=== PATIENT | male | born 1960 | race Caucasian/White ===

== ENCOUNTER → 2018-05-25 | Outpatient (REF) | payer OTHER, MEDICARE ==
[2018-05-25 13:21] LABS: BASO # 0.1 10^3/uL (0.0-0.2); BASO % 0.6 % (0.0-1.0); EOS # 0.3 10^3/uL (0.0-0.50); EOS % 3.5 % (0.0-3.0); HEMATOCRIT 39.4 % (42.0-52.0); HEMOGLOBIN 12.1 g/dl (13.5-17.5); IMMATURE GRANULOCYTE % 0.3 % (0-3.0); LYMPH # 1.4 10^3/uL (1.5-4.5); LYMPH % 15.8 % (24.0-44.0); MEAN CORPUSCULAR HEMOGLOBIN 26.2 pg (27.0-33.0); MEAN CORPUSCULAR HGB CONC 30.7 g/dl (32.0-36.5); MEAN CORPUSCULAR VOLUME 85.5 fl (80.0-96.0); MONO # 0.5 10^3/uL (0.0-0.8); MONO % 5.7 % (0.0-5.0); NEUTROPHILS # 6.6 10^3/uL (1.8-7.7); NEUTROPHILS % 74.1 % (36.0-66.0); PLATELET COUNT, AUTOMATED 328 10^3/uL (150-450); RED BLOOD COUNT 4.61 10^6/uL (4.30-6.10); RED CELL DISTRIBUTION WIDTH 14.2 % (11.5-14.5); WHITE BLOOD COUNT 8.9 10^3/uL (4.0-10.0)
[2018-05-25 13:43] LABS: ERYTHROCYTE SEDIMENTATION RATE 9 mm/hr (0-20)
== END ==
LOC: M SFHCPLAZ 10:50
DX: T84.50XA Infection and inflammatory reaction due to unspecified internal joint prosthesis, initial encounter (principal); Y83.8 Other surgical procedures as the cause of abnormal reaction of the patient, or of later complication, without mention of misadventure at the time of the procedure

== ENCOUNTER → 2018-06-23 | Outpatient (REF) | payer OTHER, MEDICARE | LOC: M SFHCPLAZ 11:42 | PROVIDERS: ATTEND Internal Medicine Infectious Disease | DX: A49.01 Methicillin susceptible Staphylococcus aureus infection, unspecified site (principal) ==

== ENCOUNTER → 2019-05-17 | Outpatient (REF) | LOC: M LAB LCGH 14:48 | PROVIDERS: ATTEND Surgery | DX: Z45.2 Encounter for adjustment and management of vascular access device (principal) ==

== ENCOUNTER 2023-09-15 13:43 | Inpatient (IN) | payer BC, MEDICARE ==
[~2023-09-15] VITALS: Ht 185.4 cm; Wt 171.6 kg
[2023-09-15 16:21] VITALS: BP 158/90; TEMP 99.1; O2SAT 99
[2023-09-15 16:53] LABS: BASO # 0.1 10^3/uL (0.0-0.2); BASO % 0.4 % (0.0-1.0); EOS % 0.2 % (0.0-3.0); HEMATOCRIT 31.9 % (42.0-52.0); HEMOGLOBIN 9.7 g/dl (13.5-17.5); LYMPH # 0.8 10^3/uL (1.5-5.0); MEAN CORPUSCULAR HEMOGLOBIN 25.5 pg (27.0-33.0); MEAN CORPUSCULAR HGB CONC 30.4 g/dl (32.0-36.5); MEAN CORPUSCULAR VOLUME 83.9 fl (80.0-96.0); MONO # 1.8 10^3/uL (0.0-0.8); MONO % 9.3 % (2.0-8.0); NEUTROPHILS # 16.2 10^3/uL (1.5-8.5); PLATELET COUNT, AUTOMATED 485 10^3/uL (150-450)
[2023-09-15 17:18] LABS: INR 1.21; PARTIAL THROMBOPLASTIN TIME 30.7 SECONDS (24.8-34.2); PROTHROMBIN TIME 14.9 SECONDS (12.5-14.5)
[2023-09-15 17:21] LABS: ALBUMIN 2.2 G/DL (3.2-5.2); ALKALINE PHOSPHATASE 124 U/L (46-116); ALT/SGPT < 9 U/L (7.0-40); AST/SGOT 45 U/L (<34); BILIRUBIN,TOTAL 0.6 MG/DL (0.3-1.2); BLOOD UREA NITROGEN 10 MG/DL (9-23); CALCIUM LEVEL 9.7 MG/DL (8.3-10.6); CARBON DIOXIDE LEVEL 27 MMOL/L (20-31); CHLORIDE LEVEL 101 MMOL/L (98-107); CREATININE FOR GFR 0.62 MG/DL (0.70-1.30); GLOMERULAR FILTRATION RATE > 60.0 (>49); GLUCOSE, FASTING 95 MG/DL (74-106); SODIUM LEVEL 138 MMOL/L (136-145); TOTAL PROTEIN 5.6 G/DL (5.7-8.2)
[2023-09-15] MEDS ORDERED: MOM 30ML SUSPENSION UDC PO PRN (17:25)
[2023-09-15 18:29] LABS: BILIRUBIN,DIRECT 0.3 MG/DL (<0.4)
[2023-09-15 18:31] LABS: HEMOGLOBIN A1c 4.7 % (4.0-6.0)
[2023-09-15 18:41] LABS: PROCALCITONIN 3.65 ng/ml
[2023-09-15] MEDS ORDERED: VITA100T59 PO (19:48)
[2023-09-15] MEDS ORDERED: LOSA100T46 PO (19:48)
[2023-09-15] MEDS ORDERED: FURO20TA2 PO (19:48)
[2023-09-15] MEDS ORDERED: NIFE1TAB51 PO (19:48)
[2023-09-15] MEDS ORDERED: FLINCHW2 PO (19:48)
[2023-09-15] MEDS ORDERED: PROBCAP14 PO (19:48)
[2023-09-15] MEDS ORDERED: METO50TA7 PO (19:48)
[2023-09-15] MEDS ORDERED: FLUTISP NARES (19:48)
[2023-09-15] MEDS ORDERED: VITAD400CA PO (19:48)
[2023-09-15] MEDS ORDERED: FERR32TA PO (19:48)
[2023-09-15] MEDS ORDERED: B-12100010 PO (19:48)
[2023-09-15] MEDS ORDERED: HOME MED LIST COMPLETE! XX SCH (19:55)
[2023-09-15 20:09] VITALS: BP 105/64; TEMP 99; O2SAT 95
[2023-09-15] MEDS: NYSTATIN 100,000 UNITS/GM TOPICAL PWD 15GM TOP SCH (21:29)
[2023-09-15] MEDS: FERROUS GLUCONATE 324 MG TAB PO SCH (21:32)
[2023-09-15] MEDS: NIFEdipine 30MG XL TAB PO SCH (21:32)
[2023-09-15] MEDS: METOPROLOL TART 50 MG TAB PO SCH (21:33)
[2023-09-15] MEDS: DOCUSATE SODIUM 100MG CAPSULE PO SCH (21:33)
[2023-09-15] MEDS: HEPARIN SOD (PORCINE) 5000UNITS/ML 1ML VIAL/SYRINGE SQ ONE (21:34)
[2023-09-15] MEDS: PIPERACILLIN/TAZOBACTAM SOD 3.375 GM in D5W MINI-BAG PLUS 50 ML IV SCH (23:13)
[2023-09-15] MEDS: ACETAMINOPHEN TAB 650MG DOSE (2X325MG) PO PRN (23:19)
[2023-09-16] VITALS (8 sets, daily range): BP systolic 108–143; BP diastolic 60–91; TEMP 96.4–101.5; O2SAT 93–99
[2023-09-16 05:46] LABS: BASO # 0.1 10^3/uL (0.0-0.2); BASO % 0.4 % (0.0-1.0); EOS # 0.1 10^3/uL (0.0-0.5); EOS % 0.8 % (0.0-3.0); HEMATOCRIT 29.5 % (42.0-52.0); HEMOGLOBIN 8.9 g/dl (13.5-17.5); LYMPH # 0.7 10^3/uL (1.5-5.0); LYMPH % 4.4 % (24.0-44.0); MEAN CORPUSCULAR HEMOGLOBIN 25.3 pg (27.0-33.0); MEAN CORPUSCULAR HGB CONC 30.2 g/dl (32.0-36.5); MEAN CORPUSCULAR VOLUME 83.8 fl (80.0-96.0); MONO # 1.8 10^3/uL (0.0-0.8); MONO % 11.4 % (2.0-8.0); NEUTROPHILS # 12.7 10^3/uL (1.5-8.5); NEUTROPHILS % 81.7 % (36.0-66.0); PLATELET COUNT, AUTOMATED 388 10^3/uL (150-450); RED BLOOD COUNT 3.52 10^6/uL (4.30-6.10); WHITE BLOOD COUNT 15.6 10^3/uL (4.0-10.0)
[2023-09-16 06:11] LABS: BLOOD UREA NITROGEN 9 MG/DL (9-23); CARBON DIOXIDE LEVEL 29 MMOL/L (20-31); CHLORIDE LEVEL 103 MMOL/L (98-107); CREATININE FOR GFR 0.66 MG/DL (0.70-1.30); GLOMERULAR FILTRATION RATE > 60.0 (>49); GLUCOSE, FASTING 98 MG/DL (74-106); POTASSIUM SERUM 3.9 MMOL/L (3.5-5.1); SODIUM LEVEL 138 MMOL/L (136-145)
[2023-09-16] MEDS ORDERED: METOPROLOL TART 50 MG TAB PO SCH ×2 (07:10→21:00)
[2023-09-16] MEDS: CEFTAROLINE FOSAMIL 600 MG in D5W MINI-BAG PLUS 50 ML IV SCH (09:55)
[2023-09-16] MEDS: LOSARTAN 50MG TABLET PO SCH (09:57)
[2023-09-16] MEDS: FUROSEMIDE 40 MG TAB PO SCH (09:57)
[2023-09-16] MEDS: METOPROLOL TART 50 MG TAB PO ONE (09:58)
[2023-09-16] MEDS: VITAMIN D 1,000 INTERNATIONAL UNITS TABLET PO SCH (09:58)
[2023-09-16] MEDS ORDERED: LIDOCAINE 1% MDV 20ML VIAL As Ordered ONE (11:13)
[2023-09-16] MEDS ORDERED: ACETAMINOPHEN 325 MG TAB As Ordered ONE (11:22)
[2023-09-16] MEDS: metroNIDAZOLE 500 MG in IV 1 EA IV SCH (13:10)
[2023-09-16] MEDS: ASPIRIN 325 MG TAB PO SCH (13:11)
[2023-09-16] MEDS: KETOROLAC 30 MG/ML 1ML VIAL IV SCH (13:57)
[2023-09-16] MEDS: oxyCODONE 5MG TAB PO PRN (13:58)
[2023-09-16] MEDS: dilTIAZem 30 MG TAB PO SCH ×2 (16:07→22:00)
[2023-09-16] MEDS ORDERED: ISOVUE-370 76% 100ML VIAL As Ordered ONE (17:28)
[2023-09-16] MEDS ORDERED: RIVAROXABAN 10MG TAB (XARELTO) PO SCH (18:00)
[2023-09-16] MEDS: ENOXAPARIN 40MG/0.4ML SYRINGE (J1650 PER 10MG) SC SCH (20:37)
[2023-09-16] MEDS: METOPROLOL TARTRATE 100MG TAB PO SCH (20:40)
[2023-09-17 00:53] VITALS: BP 126/65; TEMP 98.1; O2SAT 97
[2023-09-17 04:15] VITALS: BP 117/53; TEMP 98; O2SAT 97
[2023-09-17 05:32] LABS: BASO # 0.1 10^3/uL (0.0-0.2); BASO % 0.5 % (0.0-1.0); EOS # 0.2 10^3/uL (0.0-0.5); EOS % 1.4 % (0.0-3.0); HEMATOCRIT 28.5 % (42.0-52.0); HEMOGLOBIN 8.6 g/dl (13.5-17.5); LYMPH # 0.8 10^3/uL (1.5-5.0); LYMPH % 5.2 % (24.0-44.0); MEAN CORPUSCULAR HEMOGLOBIN 25.4 pg (27.0-33.0); MEAN CORPUSCULAR HGB CONC 30.2 g/dl (32.0-36.5); MEAN CORPUSCULAR VOLUME 84.3 fl (80.0-96.0); MONO # 1.8 10^3/uL (0.0-0.8); NEUTROPHILS # 11.7 10^3/uL (1.5-8.5); NEUTROPHILS % 79.7 % (36.0-66.0); PLATELET COUNT, AUTOMATED 372 10^3/uL (150-450); RED BLOOD COUNT 3.38 10^6/uL (4.30-6.10); WHITE BLOOD COUNT 14.7 10^3/uL (4.0-10.0)
[2023-09-17 06:08] LABS: BLOOD UREA NITROGEN 11 MG/DL (9-23); CALCIUM LEVEL 8.7 MG/DL (8.3-10.6); CARBON DIOXIDE LEVEL 29 MMOL/L (20-31); CHLORIDE LEVEL 103 MMOL/L (98-107); CREATININE FOR GFR 0.69 MG/DL (0.70-1.30); GLOMERULAR FILTRATION RATE > 60.0 (>49); GLUCOSE, FASTING 97 MG/DL (74-106); POTASSIUM SERUM 3.9 MMOL/L (3.5-5.1); SODIUM LEVEL 140 MMOL/L (136-145)
[2023-09-17 08:05] VITALS: BP 126/68; TEMP 97.9; O2SAT 98
[2023-09-17 11:40] VITALS: BP 131/69; TEMP 97.8; O2SAT 98
[2023-09-17 19:53] VITALS: BP 137/73; TEMP 97.9; O2SAT 96
[2023-09-17] MEDS: APIXABAN 5 MG TAB (ELIQUIS) PO SCH (21:05)
[2023-09-17 23:39] VITALS: BP 134/62; TEMP 98.3; O2SAT 97
[2023-09-18] MEDS: guaiFENesin DM *SUGAR FREE* 5ML**DIABETIC TUSSIN DM PO PRN (00:06)
[2023-09-18 03:25] VITALS: BP 137/71; TEMP 97.3; O2SAT 95
[2023-09-18 05:35] LABS: BASO # 0.1 10^3/uL (0.0-0.2); BASO % 0.6 % (0.0-1.0); EOS # 0.2 10^3/uL (0.0-0.5); EOS % 1.4 % (0.0-3.0); HEMATOCRIT 27.9 % (42.0-52.0); HEMOGLOBIN 8.4 g/dl (13.5-17.5); LYMPH # 0.9 10^3/uL (1.5-5.0); LYMPH % 5.7 % (24.0-44.0); MEAN CORPUSCULAR HEMOGLOBIN 25.1 pg (27.0-33.0); MEAN CORPUSCULAR HGB CONC 30.1 g/dl (32.0-36.5); MEAN CORPUSCULAR VOLUME 83.5 fl (80.0-96.0); MONO # 1.7 10^3/uL (0.0-0.8); MONO % 10.5 % (2.0-8.0); NEUTROPHILS # 12.8 10^3/uL (1.5-8.5); NEUTROPHILS % 80.9 % (36.0-66.0); PLATELET COUNT, AUTOMATED 394 10^3/uL (150-450); RED BLOOD COUNT 3.34 10^6/uL (4.30-6.10); WHITE BLOOD COUNT 15.9 10^3/uL (4.0-10.0)
[2023-09-18 06:05] LABS: BLOOD UREA NITROGEN 11 MG/DL (9-23); CALCIUM LEVEL 9.4 MG/DL (8.3-10.6); CARBON DIOXIDE LEVEL 28 MMOL/L (20-31); CHLORIDE LEVEL 101 MMOL/L (98-107); GLOMERULAR FILTRATION RATE > 60.0 (>49); GLUCOSE, FASTING 92 MG/DL (74-106); POTASSIUM SERUM 3.9 MMOL/L (3.5-5.1); SODIUM LEVEL 136 MMOL/L (136-145)
[2023-09-18 07:28] VITALS: BP 145/75; TEMP 97.4; O2SAT 92
[2023-09-18] MEDS: MUPIROCIN 2% OINT 22 GM TUBE TOP SCH (08:30)
[2023-09-18 11:27] VITALS: BP 116/68; TEMP 96.9; O2SAT 96
[2023-09-18] MEDS: dilTIAZem 30 MG TAB PO SCH (13:01)
[2023-09-18 16:19] VITALS: BP 139/62; TEMP 97.1; O2SAT 97
[2023-09-18 19:44] VITALS: BP 131/60; TEMP 97; O2SAT 93
[2023-09-19 03:04] VITALS: BP 156/68; TEMP 97.6; O2SAT 93
[2023-09-19 05:49] LABS: BASO # 0.1 10^3/uL (0.0-0.2); BASO % 0.7 % (0.0-1.0); EOS # 0.3 10^3/uL (0.0-0.5); EOS % 1.6 % (0.0-3.0); HEMATOCRIT 30.3 % (42.0-52.0); LYMPH # 0.8 10^3/uL (1.5-5.0); MEAN CORPUSCULAR HEMOGLOBIN 25.1 pg (27.0-33.0); MEAN CORPUSCULAR HGB CONC 29.7 g/dl (32.0-36.5); MEAN CORPUSCULAR VOLUME 84.4 fl (80.0-96.0); MONO # 1.5 10^3/uL (0.0-0.8); MONO % 9.9 % (2.0-8.0); NEUTROPHILS # 12.5 10^3/uL (1.5-8.5); NEUTROPHILS % 81.6 % (36.0-66.0); PLATELET COUNT, AUTOMATED 428 10^3/uL (150-450); RED BLOOD COUNT 3.59 10^6/uL (4.30-6.10); WHITE BLOOD COUNT 15.3 10^3/uL (4.0-10.0)
[2023-09-19 06:01] LABS: BLOOD UREA NITROGEN 10 MG/DL (9-23); CALCIUM LEVEL 9.2 MG/DL (8.3-10.6); CARBON DIOXIDE LEVEL 31 MMOL/L (20-31); CHLORIDE LEVEL 101 MMOL/L (98-107); CREATININE FOR GFR 0.59 MG/DL (0.70-1.30); GLOMERULAR FILTRATION RATE > 60.0 (>49); GLUCOSE, FASTING 91 MG/DL (74-106); SODIUM LEVEL 137 MMOL/L (136-145)
[2023-09-19 07:55] VITALS: BP 128/61; TEMP 97.3; O2SAT 92
[2023-09-19 07:55] LABS: MAGNESIUM LEVEL 1.6 MG/DL (1.8-2.4)
[2023-09-19] MEDS: ONDANSETRON 4MG 2ML VIAL IV PRN (09:31)
[2023-09-19 11:30] VITALS: BP 125/54; TEMP 97.3; O2SAT 94
[2023-09-19] MEDS: INFLUENZA QUADRIVALENT PF VACCINE 0.5ML SYRINGE IM.IMMUN ONE (12:34)
[2023-09-19 14:45] VITALS: BP 134/63; TEMP 97.3; O2SAT 90
[2023-09-19] MEDS: MAGNESIUM CITRATE 300ML BTL PO ONE (16:16)
[2023-09-19 20:32] VITALS: BP 119/59; TEMP 97.3; O2SAT 90
[2023-09-19] MEDS ORDERED: SENOKOT S TAB PO SCH (21:00)
[2023-09-19] MEDS: SENOKOT S TAB PO SCH (21:29)
[2023-09-19] MEDS: oxyCODONE 5MG TAB PO PRN (22:07)
[2023-09-20 04:35] VITALS: BP 119/58; TEMP 97.2; O2SAT 86
[2023-09-20 06:48] LABS: BASO # 0.1 10^3/uL (0.0-0.2); BASO % 0.7 % (0.0-1.0); EOS # 0.2 10^3/uL (0.0-0.5); EOS % 1.4 % (0.0-3.0); HEMATOCRIT 30.1 % (42.0-52.0); HEMOGLOBIN 8.9 g/dl (13.5-17.5); LYMPH # 0.9 10^3/uL (1.5-5.0); LYMPH % 5.2 % (24.0-44.0); MEAN CORPUSCULAR HEMOGLOBIN 25.2 pg (27.0-33.0); MEAN CORPUSCULAR HGB CONC 29.6 g/dl (32.0-36.5); MEAN CORPUSCULAR VOLUME 85.3 fl (80.0-96.0); MONO % 11.9 % (2.0-8.0); NEUTROPHILS # 12.9 10^3/uL (1.5-8.5); NEUTROPHILS % 78.8 % (36.0-66.0); PLATELET COUNT, AUTOMATED 483 10^3/uL (150-450); RED BLOOD COUNT 3.53 10^6/uL (4.30-6.10); WHITE BLOOD COUNT 16.4 10^3/uL (4.0-10.0)
[2023-09-20 07:08] LABS: BLOOD UREA NITROGEN 10 MG/DL (9-23); CALCIUM LEVEL 9.2 MG/DL (8.3-10.6); CARBON DIOXIDE LEVEL 34 MMOL/L (20-31); CHLORIDE LEVEL 98 MMOL/L (98-107); CREATININE FOR GFR 0.64 MG/DL (0.70-1.30); GLOMERULAR FILTRATION RATE > 60.0 (>49); GLUCOSE, FASTING 80 MG/DL (74-106); POTASSIUM SERUM 4.3 MMOL/L (3.5-5.1); SODIUM LEVEL 137 MMOL/L (136-145)
[2023-09-20] MEDS: MIRALAX *UNIT DOSE* 17GM PACKET PO SCH (09:09)
[2023-09-20] MEDS: dilTIAZem 60 MG TAB PO SCH (11:09)
[2023-09-20 14:00] VITALS: BP 111/48; TEMP 97.5; O2SAT 99
[2023-09-20 20:08] VITALS: BP 123/56; TEMP 97.3; O2SAT 93
[2023-09-21 05:22] VITALS: BP 117/70; TEMP 97.2; O2SAT 94
[2023-09-21 06:44] LABS: BASO # 0.1 10^3/uL (0.0-0.2); BASO % 0.6 % (0.0-1.0); EOS # 0.3 10^3/uL (0.0-0.5); EOS % 1.9 % (0.0-3.0); HEMOGLOBIN 8.8 g/dl (13.5-17.5); LYMPH # 0.9 10^3/uL (1.5-5.0); LYMPH % 5.2 % (24.0-44.0); MEAN CORPUSCULAR HEMOGLOBIN 25.1 pg (27.0-33.0); MEAN CORPUSCULAR HGB CONC 29.3 g/dl (32.0-36.5); MEAN CORPUSCULAR VOLUME 85.7 fl (80.0-96.0); MONO % 11.5 % (2.0-8.0); NEUTROPHILS # 13.6 10^3/uL (1.5-8.5); NEUTROPHILS % 79.4 % (36.0-66.0); PLATELET COUNT, AUTOMATED 466 10^3/uL (150-450); WHITE BLOOD COUNT 17.2 10^3/uL (4.0-10.0)
[2023-09-21 07:06] LABS: BLOOD UREA NITROGEN 10 MG/DL (9-23); CALCIUM LEVEL 9.3 MG/DL (8.3-10.6); CARBON DIOXIDE LEVEL 31 MMOL/L (20-31); CHLORIDE LEVEL 95 MMOL/L (98-107); CREATININE FOR GFR 0.58 MG/DL (0.70-1.30); GLOMERULAR FILTRATION RATE > 60.0 (>49); GLUCOSE, FASTING 90 MG/DL (74-106); POTASSIUM SERUM 4.2 MMOL/L (3.5-5.1); SODIUM LEVEL 134 MMOL/L (136-145)
[2023-09-21] MEDS ORDERED: MIRALAX *UNIT DOSE* 17GM PACKET PO PRN (13:40)
[2023-09-21] MEDS ORDERED: SENOKOT S TAB PO PRN (13:40)
[2023-09-21] MEDS: dilTIAZem 60 MG TAB PO SCH (13:59)
[2023-09-21 14:00] VITALS: BP 115/51; TEMP 97.9; O2SAT 96
[2023-09-21 14:13] LABS: HEMATOCRIT 29.6 % (42.0-52.0); HEMOGLOBIN 8.8 g/dl (13.5-17.5)
[2023-09-21 18:20] LABS: HEMATOCRIT 28.7 % (42.0-52.0); HEMOGLOBIN 8.6 g/dl (13.5-17.5)
[2023-09-21 19:40] VITALS: BP 109/58; TEMP 98.1; O2SAT 93
[2023-09-21 22:30] LABS: HEMATOCRIT 28.9 % (42.0-52.0); HEMOGLOBIN 8.5 g/dl (13.5-17.5)
[2023-09-22 06:00] VITALS: BP 107/44; TEMP 97.3; O2SAT 95
[2023-09-22 06:27] LABS: BASO # 0.1 10^3/uL (0.0-0.2); BASO % 0.6 % (0.0-1.0); EOS # 0.3 10^3/uL (0.0-0.5); HEMATOCRIT 30.4 % (42.0-52.0); HEMOGLOBIN 8.8 g/dl (13.5-17.5); LYMPH # 0.9 10^3/uL (1.5-5.0); LYMPH % 6.5 % (24.0-44.0); MEAN CORPUSCULAR HEMOGLOBIN 25.4 pg (27.0-33.0); MEAN CORPUSCULAR HGB CONC 28.9 g/dl (32.0-36.5); MEAN CORPUSCULAR VOLUME 87.6 fl (80.0-96.0); MONO # 1.8 10^3/uL (0.0-0.8); MONO % 12.6 % (2.0-8.0); NEUTROPHILS # 11.1 10^3/uL (1.5-8.5); NEUTROPHILS % 76.8 % (36.0-66.0); PLATELET COUNT, AUTOMATED 421 10^3/uL (150-450); RED BLOOD COUNT 3.47 10^6/uL (4.30-6.10); WHITE BLOOD COUNT 14.4 10^3/uL (4.0-10.0)
[2023-09-22 06:39] VITALS: BP 135/61; TEMP 97.2; O2SAT 95
[2023-09-22 06:57] LABS: BLOOD UREA NITROGEN 10 MG/DL (9-23); CALCIUM LEVEL 9.1 MG/DL (8.3-10.6); CARBON DIOXIDE LEVEL 34 MMOL/L (20-31); CHLORIDE LEVEL 99 MMOL/L (98-107); CREATININE FOR GFR 0.56 MG/DL (0.70-1.30); GLOMERULAR FILTRATION RATE > 60.0 (>49); GLUCOSE, FASTING 88 MG/DL (74-106); POTASSIUM SERUM 4.2 MMOL/L (3.5-5.1); SODIUM LEVEL 138 MMOL/L (136-145)
[2023-09-22 12:50] VITALS: O2SAT 94
[2023-09-22 15:00] VITALS: BP 128/61; TEMP 97.2; O2SAT 96
[2023-09-22 22:00] VITALS: BP 132/58; TEMP 98.8; O2SAT 94
[2023-09-22 22:23] VITALS: O2SAT 96
[2023-09-23 00:47] VITALS: O2SAT 96
[2023-09-23 01:50] VITALS: O2SAT 90
[2023-09-23 04:44] VITALS: BP 142/54; TEMP 97; O2SAT 91
[2023-09-23 14:00] VITALS: BP 108/52; TEMP 97.1; O2SAT 91
[2023-09-23 21:44] VITALS: O2SAT 90
[2023-09-23 22:00] VITALS: BP 116/58; TEMP 97.5; O2SAT 90
[2023-09-24 06:00] VITALS: BP 161/64; TEMP 97.3; O2SAT 92
[2023-09-24 08:28] LABS: HEMATOCRIT 28.7 % (42.0-52.0); HEMOGLOBIN 8.6 g/dl (13.5-17.5); MEAN CORPUSCULAR HEMOGLOBIN 25.5 pg (27.0-33.0); MEAN CORPUSCULAR VOLUME 85.2 fl (80.0-96.0); PLATELET COUNT, AUTOMATED 370 10^3/uL (150-450); RED BLOOD COUNT 3.37 10^6/uL (4.30-6.10); WHITE BLOOD COUNT 11.6 10^3/uL (4.0-10.0)
[2023-09-24 13:14] VITALS: BP 109/77
[2023-09-24 14:00] VITALS: BP 109/77; TEMP 97.3; O2SAT 92
[2023-09-24 15:51] VITALS: O2SAT 92
[2023-09-24 16:11] VITALS: O2SAT 92
[2023-09-24] MEDS ORDERED: HYOSCYAMINE SULFATE 0.125 MG SUBL TABLET PO PRN (18:15)
[2023-09-25] MEDS: MORPHINE 10MG/0.5ML ORAL CONCENTRATE SOLUTION U/D SL PRN (12:57)
[2023-09-25] MEDS: ACETAMINOPHEN 500 MG TAB PO PRN (18:04)
[2023-09-26] MEDS: LORazepam 1 MG TAB PO PRN (09:57)
[2023-09-26] MEDS ORDERED: HYOS125TA PO (12:39)
[2023-09-26] MEDS ORDERED: ACET-683 PO (12:39)
[2023-09-26] MEDS ORDERED: MIRA33506 PO (12:39)
[2023-09-26] MEDS ORDERED: ATIV1TAB10 PO (12:39)
[2023-09-26] MEDS ORDERED: MORP1SOL5 PO (12:39)
== END 2023-09-26 15:31 | disposition hospice, home (50) | DRG 681 ==
LOC: M PCU 16:05 → EEVIPCON 16:05 → M MSPAV 09-19 11:27
PROVIDERS: ADMIT General Practice; ATTEND Student in an Organized Health Care Education/Training Program
PROC: 07BH3ZX Excision of Right Inguinal Lymphatic, Percutaneous Approach, Diagnostic (ICD-10-PCS; principal; 2023-09-16 12:00)
DX: C85.18 Unspecified B-cell lymphoma, lymph nodes of multiple sites (principal); A52.16 Charcot's arthropathy (tabetic); J96.11 Chronic respiratory failure with hypoxia; Z68.42 Body mass index [BMI] 45.0-49.9, adult; I48.91 Unspecified atrial fibrillation; E66.01 Morbid (severe) obesity due to excess calories; R13.10 Dysphagia, unspecified; R54 Age-related physical debility; D72.829 Elevated white blood cell count, unspecified; I10 Essential (primary) hypertension; K59.00 Constipation, unspecified; K62.5 Hemorrhage of anus and rectum; M10.9 Gout, unspecified; R26.9 Unspecified abnormalities of gait and mobility; R29.6 Repeated falls; R63.4 Abnormal weight loss; G47.33 Obstructive sleep apnea (adult) (pediatric); Z88.8 Allergy status to other drugs, medicaments and biological substances; D50.9 Iron deficiency anemia, unspecified; F41.9 Anxiety disorder, unspecified; F32.A Depression, unspecified; Z95.2 Presence of prosthetic heart valve; Z96.642 Presence of left artificial hip joint; Z79.899 Other long term (current) drug therapy

== ENCOUNTER 2023-09-25 13:07 | Outpatient (RCR) | payer BC, MEDICARE ==
[~2023-09-25 13:07] MED LIST: B-12100010 PO; FERR32TA PO; FLINCHW2 PO; FLUTISP NARES; FURO20TA2 PO; LOSA100T46 PO; METO50TA7 PO; NIFE1TAB51 PO; PROBCAP14 PO; VITA100T59 PO; VITAD400CA PO
[2023-09-26] MEDS ORDERED: ACET-683 PO (12:39)
[2023-09-26] MEDS ORDERED: ATIV1TAB10 PO (12:39)
[2023-09-26] MEDS ORDERED: MORP1SOL5 PO (12:39)
[2023-09-26] MEDS ORDERED: MIRA33506 PO (12:39)
[2023-09-26] MEDS ORDERED: HYOS125TA PO (12:39)
== END 2023-10-05 ==
LOC: M ONCR 13:07
PROVIDERS: ATTEND General Practice
DX: Z51.0 Encounter for antineoplastic radiation therapy (principal); C85.16 Unspecified B-cell lymphoma, intrapelvic lymph nodes